=== PATIENT | female | born 1950 | race Caucasian/White ===

== ENCOUNTER 2017-08-11 10:16 | Outpatient (CLI) | payer MEDICARE | END 2017-08-11 10:17 | disposition home or self-care (01) | LOC: DTY/OP 10:16 | PROVIDERS: ATTEND Family Medicine | DX: E11.65 Type 2 diabetes mellitus with hyperglycemia (principal) | CPT/HCPCS: 97802 ==

== ENCOUNTER 2018-01-30 13:40 | Outpatient (CLI) | payer MEDICARE ==
--- NOTE | 2018-01-30 15:51 | RAD ---
TWO VIEWS RIGHT CALCANEUS: DAT4E: 01/31/2018. HISTORY: Right heel pain. FINDINGS: No fracture is seen involving the right calcaneus. No lytic or sclerotic osseous lesion is appreciat ed. There are several corticated osseous densities seen overlying the inferior aspect of the anterio r process of the calcaneus posterior to the level of the cuboid bone which may represent accessory ce nters of ossification and/or remote avulsion-type injuries. No other findings. IMPRESSION: No acute osseous abnormality involving the right calcaneus. POS: [facility]
== END 2018-01-30 13:41 | disposition home or self-care (01) ==
LOC: RAD-FRANK 13:40
PROVIDERS: ATTEND Nurse Practitioner Family
DX: M79.671 Pain in right foot (principal)

== ENCOUNTER 2018-03-31 09:59 | Outpatient (CLI) | payer MEDICARE ==
--- NOTE | 2018-03-31 10:15 | RAD ---
CHEST PA AND LATERAL: HISTORY: A 67-year-old female with a history of cough. FINDINGS: Minimal biapical pleural thickening. Heart size is within normal limits. No confluent pneumonia, ov ert edema, or pleural effusion. IMPRESSION: No acute intrathoracic disease. Atherosclerosis of the aorta. No evidence for pneumonia. POS: [facility]
== END 2018-03-31 10:00 | disposition home or self-care (01) ==
LOC: RAD-FRANK 09:59
PROVIDERS: ATTEND Nurse Practitioner Family
DX: R05 Cough (principal); I70.0 Atherosclerosis of aorta
CPT/HCPCS: 71046

== ENCOUNTER 2018-05-30 11:41 | Outpatient (CLI) | payer MEDICARE ==
--- NOTE | 2018-05-30 14:58 | MMO ---
FILMS COMPARED: The present examination has been compared to a prior imaging study performed at [facility] on 11/06/2012. MAMMOGRAM FINDINGS: There are scattered fibroglandular densities. Finding 1: There are vascular calcifications seen in both breasts. Finding 2: There are benign appearing calcifications seen in both breasts. There are no suspicious masses, calcifications or areas of architectural distortion. IMPRESSION: ALL ABOVE FINDINGS ARE BENIGN. A ROUTINE FOLLOW-UP MAMMOGRAM IN 1 YEAR IS RECOMMENDED. ACR BI-RADS Category 2 - Benign finding
== END 2018-05-30 11:42 | disposition home or self-care (01) ==
LOC: BICMAMMO 11:41
PROVIDERS: ATTEND Nurse Practitioner Family
DX: Z12.31 Encounter for screening mammogram for malignant neoplasm of breast (principal)
CPT/HCPCS: 77063; 77067

== ENCOUNTER 2021-02-17 14:31 | Outpatient (CLI) | payer MEDICARE | END 2021-02-17 14:32 | disposition home or self-care (01) | LOC: RAD-FRANK 14:31 | PROVIDERS: ATTEND Nurse Practitioner Family | DX: M25.561 Pain in right knee (principal); M17.11 Unilateral primary osteoarthritis, right knee ==

== ENCOUNTER 2021-09-04 12:09 | Emergency (ER) | payer MEDICARE ==
[2021-09-04 13:30] LABS: #Basophils 0.1 thou/uL (0.0-0.2); #Lymphocytes 1.9 thou/uL (1.20-3.40); #Monocytes 1.2 thou/uL (0.11-0.59); #Neutrophils 7.7 thou/uL (1.40-6.50); %Basophils 0.6 % (0.0-1.0); %Eosinophils 0.1 % (0.0-10.0); %Lymphocytes 17.6 % (21.0-51.0); %Monocytes 11.1 % (0.0-10.0); %Neutrophils 70.6 % (42.0-75.0); Hemoglobin 13.5 g/dL (12.0-16.0); Mean Corpuscular HGB CONC 33.3 g/dL (32.0-36.0); Mean Corpuscular Hemoglobin 33.2 pg (27.0-31.0); Mean Corpuscular Volume 99.6 fL (78.0-98.0); Mean Platelet Volume 9.8 fL (7.4-10.4); Platelet Count 206 thou/uL (130-400); RBC Distribution Width 12.5 % (11.5-14.5); Red Blood Cell (RBC) Count 4.07 mill/uL (4.20-5.40)
[2021-09-04 13:50] LABS: ALT (SGPT) 76 U/L (8-55); AST (SGOT) 49 U/L (5-34); Albumin 3.7 g/dL (3.4-4.8); Alkaline Phosphatase 79 U/L (40-110); Anion Gap 15 mmol/L (10-20); BUN (Urea Nitrogen) 20 mg/dL (9.8-20.1); Bilirubin, Total 0.7 mg/dL (0.2-1.2); Calc. Creatinine Clearance 0 mL/min (70-130); Calcium 9.3 mg/dL (7.8-10.44); Carbon Dioxide 22 mmol/L (23-31); Chloride 102 mmol/L (98-107); Globulin 3.2 g/dL (2.4-3.5); Glucose 274 mg/dL (80-115); Potassium 4.1 mmol/L (3.5-5.1); Protein, Total 6.9 g/dL (5.8-8.1); Sodium 135 mmol/L (136-145)
[2021-09-04] MEDS ORDERED: Acetaminophen 500 MG TAB ONE (15:15)
[2021-09-04 17:02] LABS: Bilirubin Negative (Negative); Blood, Urine Trace (Negative); Clarity Clear (Clear); Glucose, Urine (Dipstick) Greater than 1000 mg/dL (Negative); Ketone, Urine Negative (Negative); Leukocyte 250 Leu/uL (Negative); Nitrite 2+ (Negative); Protein, Urine (Dipstick) Negative (Neg-Trace); RBC/HPF 0-3 HPF (0-3); Specific Gravity, Urine 1.021 (1.002-1.036); Squamous Epithelial 0-3 HPF (0-3); Urobilinogen Normal mg/dL (Less than 2)
[2021-09-04 17:11] LABS: Bacteria/HPF 4+ HPF (None Seen)
== END 2021-09-04 17:58 ==
LOC: ERS 12:09
DX: M54.50 Low back pain, unspecified (principal); R53.1 Weakness; N39.0 Urinary tract infection, site not specified; R63.0 Anorexia; I10 Essential (primary) hypertension; E11.9 Type 2 diabetes mellitus without complications; E78.5 Hyperlipidemia, unspecified; E78.00 Pure hypercholesterolemia, unspecified; W19.XXXA Unspecified fall, initial encounter; Z68.45 Body mass index [BMI] 70 or greater, adult; Z79.84 Long term (current) use of oral hypoglycemic drugs; Z79.899 Other long term (current) drug therapy
CPT/HCPCS: 36415; 70450; 80053; 81003; 81015; 84484; 85025; 87077; 87086; 87186; 93005; 96360

== ENCOUNTER 2024-05-04 09:57 | Emergency (ER) | payer MEDICARE | END 2024-05-04 13:49 | disposition home or self-care (01) | LOC: ERS 09:57 | DX: S82.832A Other fracture of upper and lower end of left fibula, initial encounter for closed fracture (principal); R60.0 Localized edema; I10 Essential (primary) hypertension; E11.9 Type 2 diabetes mellitus without complications; W19.XXXA Unspecified fall, initial encounter; Y93.01 Activity, walking, marching and hiking; Z79.84 Long term (current) use of oral hypoglycemic drugs; Z79.899 Other long term (current) drug therapy | CPT/HCPCS: 99283 ==